=== PATIENT | female | born 1930 | race Two or more races ===

== ENCOUNTER 2017-10-22 11:06 | Outpatient (CLI) | payer OTHER | END 2017-10-22 11:26 | disposition home or self-care (01) | LOC: SONOGRAMA 11:06 | DX: N60.11 Diffuse cystic mastopathy of right breast (principal); N60.12 Diffuse cystic mastopathy of left breast; N63.11 Unspecified lump in the right breast, upper outer quadrant ==

== ENCOUNTER 2017-12-03 05:30 | Day surgery (SDC) | payer OTHER ==
[~2017-12-03 05:30] MED LIST: ATORVASTATIN CA10 MG PO; BREO ELLIPTA 21 EACH IH; FORTAMET500 MG PO; SINGULAIR10 MG PO; VERAPAMIL ER120 MG PO; VITA-BEE WITH1 EACH PO
== END 2017-12-03 19:45 | disposition home or self-care (01) ==
LOC: CIR.AMB 05:30
DX: C50.411 Malignant neoplasm of upper-outer quadrant of right female breast (principal)

== ENCOUNTER → 2017-12-29 | Outpatient (CLI) | payer OTHER | END | disposition home or self-care (01) | LOC: NUCLEAR 09:30 | DX: C50.411 Malignant neoplasm of upper-outer quadrant of right female breast (principal) | CPT/HCPCS: 78306; A9503 ==

== ENCOUNTER 2018-01-03 07:50 | Outpatient (CLI) | payer OTHER | END 2018-01-03 17:00 | disposition home or self-care (01) | LOC: TOM 07:50 | DX: C50.411 Malignant neoplasm of upper-outer quadrant of right female breast (principal) | CPT/HCPCS: 71260; 74177; Q9965 ==